=== PATIENT | female | born 1970 | race Two or more races ===

== ENCOUNTER 2019-12-20 06:35 | Day surgery (SDC) | payer OTHER ==
[~2019-12-20 06:35] MED LIST: COZAAR100 MG PO; TAPAZOLE5 M1 PO; TOPROL XL100 M1 PO
[2019-12-20] MEDS ORDERED: PERCOCET 5-3251 EACH PO (11:12)
== END 2019-12-20 14:35 | disposition home or self-care (01) ==
LOC: CIR.AMB 06:35
PROVIDERS: ATTEND Surgery
DX: C73 Malignant neoplasm of thyroid gland (principal); Z20.828 Contact with and (suspected) exposure to other viral communicable diseases